=== PATIENT | male | born 1955 | race African-American/Black ===

== ENCOUNTER 2016-12-18 10:04 | Emergency (ER) | payer MEDICAID ==
[~2016-12-18] VITALS: Ht 177.8 cm; Wt 95.0 kg
[~2016-12-18 10:04] MED LIST: AMLO5TAB2 PO; AMOX500C PO; LORA-361 PO; LOSARTAN POTASSIUM PO
[2016-12-18 10:06] VITALS: BP 135/89; PULSE 78; RESP 20; TEMP 98; O2SAT 97
--- NOTE | 2016-12-18 10:32 | PD ---
HPI Chief Complaint: Injury Time Seen by Provider: 10:26 Travel History International Travel<30 days: No Contact w/Intl Traveler<30days: No Traveled to known affect area: No History of Present Illness HPI 61-year-old male presents to the emergency Department with complaint of pain and swelling to the dorsal aspect of his right foot after dropping a table on it approximately 2 weeks ago. He denies paresthesias, loss of sensation, decreased range of motion, decreased strength to the affected extremity. Has been ambulatory in the affected extremity. Says the swelling subsided somewhat within the first week and a half and then got worse on Friday. The swelling has improved today. He says he's been rubbing alcohol on the top of the foot to help with swelling. He has also taken hydrocodone with good relief of pain. He has not taken any other medications or tried any other treatments to alleviate his symptoms. Denies fever, chills, nausea, vomiting. Denies allergies. History of hypertension. No other modifying factors or associated signs and symptoms. PFSH Past Medical History Arthritis: Yes Asthma: No Autoimmune Disease: No Blood Disorders: No Anxiety: No Depression: No Heart Rhythm Problems: No Cancer: No Cardiovascular Problems: Yes (irregular heart poss) High Cholesterol: No Chemotherapy: No Chest Pain: No Congestive Heart Failure: No COPD: No Cerebrovascular Accident: No Diabetes: No Diminished Hearing: Yes (LEFT EAR) Endocrine: No Gastrointestinal Disorders: Yes GERD: Yes Glaucoma: No Genitourinary: No Headaches: No Hepatitis: No Hiatal Hernia: No Heparin Induced Thrombocytopen: No Hypertension: Yes Immune Disorder: No Implanted Vascular Access Dvce: No Kidney Stones: No Musculoskeletal: Yes (L4-L5 BULGING DISCS) Neurologic: No Psychiatric: No Reproductive: No Respiratory: No Migraines: No Myocardial Infarction: No Radiation Therapy: No Renal Failure: No Seizures: No Sickle Cell Disease: No Sleep Apnea: No Thyroid Disease: No Ulcer: No Past Surgical History Abdominal Surgery: Yes (HERNIA REPAIR) AICD: No Appendectomy: No Arteriovenous Shunt: No Cardiac Surgery: No Cholecystectomy: No Ear Surgery: No Endocrine Surgery: No Eye Surgery: Yes (lt orbit fx surgery 07/03) Genitourinary Surgery: No Gynecologic Surgery: No Insulin Pump: No Joint Replacement: No Neurologic Surgery: No Pacemaker: No Thoracic Surgery: No Other Surgery: Yes (SKIN GRAFTS FOR SECOND DEGREE PINTO OF BILATERAL LEGS) Social History Alcohol Use: No (DENIES) Tobacco Use: Yes (1/2 PPD) Substance Use: Yes (HX COCAINE IN ) Allergies-Medications (Allergen,Severity, Reaction): Coded Allergies: *MDRO Multi-Drug Resistant Organism (Unverified Adverse Reaction, Unknown , 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 HEAD: Atraumatic. Normocephalic. EYES: Pupils equal and round. No scleral icterus. No injection or drainage. ENT: Mucosa pink and moist. Airway patent. NECK: Trachea midline. CARDIOVASCULAR: Regular rate. RESPIRATORY: No accessory muscle use. GASTROINTESTINAL: Rounded. MUSCULOSKELETAL: Dorsal aspect of right foot is edematous and without erythema, ecchymosis; no obvious deformity; with tenderness on palpation. Right lower extremity supple and non-tense with 2+ pedal pulse and sensory intact. No calf tenderness elicited on exam. No obvious deformities. No clubbing. No cyanosis. No edema. NEUROLOGICAL: Awake and alert. Oriented 3. No obvious cranial nerve deficits. Motor grossly within normal limits. Normal speech. PSYCHIATRIC: Appropriate mood and affect; insight and judgment normal. Data Data Last Documented VS Vital Signs Date Time Temp Pulse Resp B/P Pulse Ox O2 Delivery O2 Flow Rate FiO2 12/18/16 10:06 98.0 78 20 135/89 97 Room Air Orders Foot, Complete ([id number]) (12/18/16 10:25) [facility] Medical Decision Making Medical Screen Exam Complete: Yes Emergency Medical Condition: Yes Medical Record Reviewed: Yes Differential Diagnosis Foot contusion, foot edema, foot fracture Narrative Course 61-year-old male with right foot injury. Dorsal aspect of the right foot is edematous and without erythema or edema. No obvious deformities. Patient took hydrocodone for pain prior to arrival. Right foot x-ray ordered. 1128: Right foot x-ray concludes No acute fracture of the right foot is identified. Keshawn bandages applied for support. I offered the patient crutches and he declined. Instructed patient to follow up with podiatry. Patient verbalizes understanding and agreement with treatment plan. Patient is medically cleared and stable for discharge. Discussed reasons to return to the emergency department. Instructed patient to follow up with primary care provider. Patient agrees with treatment plan. The patients vital signs are stable and the patient is stable for outpatient follow-up and treatment. Patient discharged home, stable and in no acute distress. Diagnosis Primary Impression: Contusion of right foot Qualified Code: S90.31XA - Contusion of right foot, initial encounter Additional Impression: Edema of right foot Referrals: Cold Rolling Coordinator Primary Care Physician Patient Instructions: Edema (ED), Foot Contusion (ED), General Instructions Departure Forms: Tests/Procedures, Work Release Enter return to work date: Dec 19, 2016 Additional Instructions: Tylenol as directed and as needed for pain and inflammation Rest, ice, compress, and elevate extremity to decrease pain and inflammation Keshawn bandage for compression and support Avoid aggravating activity; increase activity as tolerated Follow-up with primary care provider Follow-up with podiatry Return to the emergency department immediately with worsening symptoms Med/Other Pt SpecificInfo: No Change to Meds, No Meds Exist/No RX given Disposition: 01 DISCHARGE HOME Condition: Stable Evonne Moss Dec 18, 2016 10:32
--- NOTE | 2016-12-18 11:23 | RADRPT ---
EXAM DATE/TIME: 12/18/2016 10:45 [facility] COMPARISON: CHEST SINGLE AP, April 13, 2013, 9:47. INDICATIONS : Right foot pain, dropped table on foot two weeks ago MEDICAL HISTORY : None. SURGICAL HISTORY : None. ENCOUNTER: Initial ACUITY: 2 weeks PAIN SCORE: 6/10 LOCATION: Right foot FINDINGS: The bony structures are intact. The alignment is anatomic. No acute fracture is identified. No retain ed foreign bodies present in the CONCLUSION: No acute fracture of the right foot is identified. Bobo Landers MD on December 18, 2016 at 11:21 Board Certified Radiologist. This report was verified electronically.
== END 2016-12-18 11:39 | disposition home or self-care (01) ==
LOC: NEPK 10:04
DX: S90.31XA Contusion of right foot, initial encounter (principal); W20.8XXA Other cause of strike by thrown, projected or falling object, initial encounter
CPT/HCPCS: 73630; 99283

== ENCOUNTER 2017-08-11 08:26 | Emergency (ER) | payer MEDICAID ==
[~2017-08-11] VITALS: Ht 177.8 cm; Wt 95.0 kg
[~2017-08-11 08:26] MED LIST changes: -AMOX500C PO
[2017-08-11 08:28] VITALS: BP 194/100; PULSE 95; RESP 12; TEMP 99.5; O2SAT 99
[2017-08-11] MEDS ORDERED: HYDR-3288 PO (08:47)
--- NOTE | 2017-08-11 09:20 | PD ---
HPI Chief Complaint: Cold / Flu Symptoms Time Seen by Provider: 09:00 Travel History International Travel<30 days: No Contact w/Intl Traveler<30days: No Traveled to known affect area: No History of Present Illness HPI 61-year-old male presents to emergency department with cough, congestion since Friday. Patient states that he left the window open in his house and started developing the symptoms. Patient states that his cough is productive with a clear sputum. Patient denies fever, chills, chest pain, shortness of breath, abdominal pain. Patient states that he has been feeling "weak" since these symptoms started. He is concerned that he is developing bacterial infection and wants to be evaluated today. Patient does have chronic back pain and hypertension. Patient sees cardiology for "an enlarged heart". PFSH Past Medical History Arthritis: Yes Asthma: No Autoimmune Disease: No Blood Disorders: No Anxiety: No Depression: No Heart Rhythm Problems: No Cancer: No Cardiovascular Problems: Yes (irregular heart poss) High Cholesterol: No Chemotherapy: No Chest Pain: No Congestive Heart Failure: No COPD: No Cerebrovascular Accident: No Diabetes: No Diminished Hearing: Yes (LEFT EAR) Endocrine: No Gastrointestinal Disorders: Yes GERD: Yes Glaucoma: No Genitourinary: No Headaches: No Hepatitis: No Hiatal Hernia: No Heparin Induced Thrombocytopen: No Hypertension: Yes Immune Disorder: No Implanted Vascular Access Dvce: No Kidney Stones: No Musculoskeletal: Yes (L4-L5 BULGING DISCS) Neurologic: No Psychiatric: No Reproductive: No Respiratory: No Migraines: No Myocardial Infarction: No Radiation Therapy: No Renal Failure: No Seizures: No Sickle Cell Disease: No Sleep Apnea: No Thyroid Disease: No Ulcer: No Past Surgical History Abdominal Surgery: Yes (HERNIA REPAIR) AICD: No Appendectomy: No Arteriovenous Shunt: No Cardiac Surgery: No Cholecystectomy: No Ear Surgery: No Endocrine Surgery: No Eye Surgery: Yes (lt orbit fx surgery 07/03) Genitourinary Surgery: No Gynecologic Surgery: No Insulin Pump: No Joint Replacement: No Neurologic Surgery: No Pacemaker: No Thoracic Surgery: No Other Surgery: Yes (SKIN GRAFTS FOR SECOND DEGREE PINTO OF BILATERAL LEGS) Social History Alcohol Use: No (DENIES) Tobacco Use: Yes (/2 PPD) Substance Use: Yes (HX COCAINE IN ) Allergies-Medications (Allergen,Severity, Reaction): Coded Allergies: *MDRO Multi-Drug Resistant Organism (Unverified Adverse Reaction, Unknown , 08/11/17) MRSA Reported Meds & Prescriptions Reported Meds & Active Scripts Active Reported [place] (Hydrocodone-Acetaminophen) 7.5-325 mg Tab 1 Tab PO Q4H PRN [Losartan-Potassium] 10 Mg PO DAILY Amlodipine (Amlodipine Besylate) 5 Mg Tab 5 Mg PO DAILY Review of Systems Except as stated in HPI: all other systems reviewed are Neg Physical Exam Narrative GENERAL: Well-nourished, well-developed patient. SKIN: Focused skin assessment warm/dry. HEAD: Normocephalic. EYES: No scleral icterus. No injection or drainage. NECK: Supple, trachea midline. No JVD or lymphadenopathy. THROAT: No pharyngeal injection, exudates, or tonsillar hypertrophy. Airway is patent. CARDIOVASCULAR: Regular rate and rhythm without murmurs, gallops, or rubs. RESPIRATORY: Breath sounds equal bilaterally. No accessory muscle use. MUSCULOSKELETAL: No cyanosis, or edema. BACK: Nontender without obvious deformity. No CVA tenderness. Data Data Last Documented VS Vital Signs Date Time Temp Pulse Resp B/P (MAP) Pulse Ox O2 Delivery O2 Flow Rate FiO2 08/11/17 08:28 99.5 95 12 194/100 (131) 99 Orders Orders Prednisone (Deltasone) (08/11/17 09:30) Ketorolac Inj (Toradol Inj) (08/11/17 09:30) MDM Medical Decision Making Medical Screen Exam Complete: Yes Emergency Medical Condition: Yes Differential Diagnosis Viral syndrome versus influenza versus upper respiratory infection Narrative Course 61-year-old male presents to emergency department with cough, congestion since Friday. Patient states that he left the window open in his house and started developing the symptoms. Patient states that his cough is productive with a clear sputum. Patient denies fever, chills, chest pain, shortness of breath, abdominal pain. Patient states that he has been feeling run down since these symptoms started and has a decreased appetite. He is concerned that he is developing bacterial infection and wants to be evaluated today. Patient does have chronic back pain and hypertension. Patient sees cardiology for "an enlarged heart". Vital signs stable Physical exam- unremarkable. HEENT unremarkable, scant clear rhinorrhea. Lungs clear to auscultation bilaterally without wheezing rales or rhonchi. I offered patient the influenza test however, patient states that he had the flu vaccine approximately 2 months ago and did not think this was necessary. H&P most consistent with viral syndrome. I educated patient on proper nutrition and fluid intake and patient understood. Patient follow-up with primary care physician within 2-3 days. If symptoms persist or worsen return to the emergency department. Diagnosis Primary Impression: Viral syndrome Referrals: Primary Care Physician Additional Instructions: Follow-up with primary care physician within 2-3 days. If your symptoms worsen or persists return to the emergency department. Ensure a proper diet and plenty fluid intake. Avoid juice Disposition: 01 DISCHARGE HOME Condition: Stable Nguyen Molina Aug 11, 2017 09:20
[2017-08-11] MEDS ORDERED: predniSONE 20 MG TAB PO ONE (09:30)
[2017-08-11] MEDS ORDERED: KETOROLAC TROMETHAMINE 60 MG/2 ML (IM) VIAL IM ONE (09:30)
== END 2017-08-11 10:03 | disposition home or self-care (01) ==
LOC: NEPD 08:26
DX: B34.9 Viral infection, unspecified (principal); M54.9 Dorsalgia, unspecified; G89.29 Other chronic pain; I10 Essential (primary) hypertension; K21.9 Gastro-esophageal reflux disease without esophagitis; M19.90 Unspecified osteoarthritis, unspecified site; I51.7 Cardiomegaly; F17.200 Nicotine dependence, unspecified, uncomplicated; Z79.899 Other long term (current) drug therapy
CPT/HCPCS: 96372; 99284; J1885; J7512